=== PATIENT | female | born 1970 | race Caucasian/White ===

== ENCOUNTER 2021-02-04 14:20 | Emergency (ER) | payer BC ==
[~2021-02-04] VITALS: Ht 157.5 cm; Wt 68.0 kg
== END 2021-02-04 17:05 | disposition home or self-care (01) ==
LOC: ER1 14:20
DX: U07.1 COVID-19 (principal); Z23 Encounter for immunization
CPT/HCPCS: 99283; M0243

== ENCOUNTER 2021-08-18 18:10 | Emergency (ER) | payer OTHER ==
[2021-08-18] MEDS ORDERED: IBUPROFEN600 MG PO (22:39)
== END 2021-08-18 23:00 | disposition home or self-care (01) ==
LOC: ER1 18:10
DX: G93.0 Cerebral cysts (principal); M54.2 Cervicalgia; M54.9 Dorsalgia, unspecified; V49.40XA Driver injured in collision with unspecified motor vehicles in traffic accident, initial encounter; Y92.410 Unspecified street and highway as the place of occurrence of the external cause
CPT/HCPCS: 70450; 71045; 72125; 72128; 72131; 99284